=== PATIENT | male | born 1990 | race Caucasian/White ===

== ENCOUNTER 2021-06-07 13:33 | Emergency (ER) | payer MEDICAID ==
[~2021-06-07] VITALS: Ht 172.7 cm; Wt 60.5 kg
[2021-06-07 13:42] VITALS: BP 128/84
[2021-06-07] MEDS ORDERED: METOCLOPRAMIDE 10 MG/2 ML INJ VIAL IVP ONE (14:15)
[2021-06-07] MEDS ORDERED: NACL 0.9% 1,000 ML IV ONE (14:15)
--- NOTE | 2021-06-07 14:25 | NUR ---
Patient ambulated to bed 02 with steady/even gait.
--- NOTE | 2021-06-07 14:30 | NUR ---
Dr. Martinez is evaluating pt at bedside
[2021-06-07] MEDS ORDERED: buprenorphine HCL 2 MG sublingual tab SL ONE ×2 (14:40→15:50)
--- NOTE | 2021-06-07 14:40 | NUR ---
31 Y/O MALE C/O OPIATE WITHDRAWAL X TODAY. PT A&OX4, AMBULATORY REPORTS NAUSEA/VOMITING, [place], ABDOMINAL CRAMPS AND BODY ACHES. PT NORMALLY TAKES 8-10 NORCO PILLS A DAY. LAST PILL XMIDNIGHT LAST NIGHT. DENIES SI/HI BUT STATES THAT HE IS SCARED TO GO HOME AND HAVE THE WITHDRAWALS GET WORSE, STATES HE IS SCARED HE IS GOING TO . PT STATES HEROIN USE DAILY FOR THE PAST YEAR; REPORTS LAST SMOKED HEROIN 12 HRS AGO. PT DENIES CHEST PAIN, ABDOMINAL PAIN, SOB, COUGH, DIZZINESS, FEVER/CHILLS. 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 SKIN PINK WARM/DRY. CAP REFILL IMMEDIATE. NO EDEMA NOTED. BED LOCKED IN LOWEST POSITION, SIDERAILS X 1, CALL LIGHT IN REACH. PMH:DENIES NKDA
[2021-06-07 14:55] LABS: BASOPHILS % (AUTO) 0.3 % (0.0-2.0); EOSINOPHILS % (AUTO) 0.5 % (0.0-4.0); HEMOGLOBIN 14.4 g/dL (12.0-18.0); LYMPHOCYTES # (AUTO) 1.2 K/uL (2.0-11.5); MEAN CORPUSCULAR HEMOGLOBIN 30 pg (27-31); MEAN CORPUSCULAR HGB CONC 34 g/dL (33-37); MEAN CORPUSCULAR VOLUME 87.7 fL (80-94); MONOCYTES # (AUTO) 0.5 K/uL (0.8-1.0); MONOCYTES % (AUTO) 5.6 % (1.7-9.3); NEUTROPHILS # (AUTO) 7.6 K/uL (1.8-7.7); NEUTROPHILS % (AUTO) 80.6 % (42.2-75.2); PLATELET COUNT (AUTO) 254 K/uL (140-450); RED BLOOD CELL COUNT(AUTO) 4.79 MIL/uL (4.20-6.10); RED CELL DISTRIBUTION WIDTH 14.4 % (11.6-13.7); WHITE BLOOD COUNT (AUTO) 9.5 K/uL (4.8-10.8)
[2021-06-07 15:27] LABS: ALBUMIN 4.3 g/dL (3.4-5.0); BILIRUBIN,DIRECT 0.2 mg/dL (0.0-0.3); TOTAL BILIRUBIN 0.9 mg/dL (0.0-1.0)
[2021-06-07 15:32] LABS: ANION GAP 14.2 (8-16); CARBON DIOXIDE 26.4 mmol/L (21-32); CREATININE 0.7 mg/dL (0.6-1.3); POTASSIUM 3.6 mmol/L (3.5-5.1)
--- NOTE | 2021-06-07 15:41 | NUR ---
Pt reports pain remains; states he feels slightly better; requesting meds for body aches at this time. Dr. Martinez made aware.
[2021-06-07] MEDS ORDERED: ONDANSETRON 4 MG/2 ML VIAL IVP ONE (15:50)
--- NOTE | 2021-06-07 17:39 | NUR ---
IV removed, catheter intact and site benign. Applied folded 2x2 gauze and tape to stop bleeding.
[2021-06-07 17:41] VITALS: BP 121/81
--- NOTE | 2021-06-07 17:41 | NUR ---
Patient discharged with v/s stable. Written and verbal after care instructions given and explained. Patient verbalized understanding. Ambulatory with steady gait. All questions addressed prior to discharge. Advised to follow up with PMD.
== END 2021-06-07 17:41 | disposition home or self-care (01) ==
LOC: MED 13:33
DX: F11.23 Opioid dependence with withdrawal (principal)
CPT/HCPCS: 36415; 80048; 80076; 83690; 85025; 93005; 96361; 96374; 96375; 99284; J2405; J2765; J7030

== ENCOUNTER 2022-09-30 00:35 | Emergency (ER) | payer MEDICAID, OTHER ==
[~2022-09-30] VITALS: Ht 177.8 cm; Wt 68.0 kg
[2022-09-30 00:36] VITALS: BP 130/90
--- NOTE | 2022-09-30 00:42 | NUR ---
TO LOBBY FOLLOWING TRIAGE
--- NOTE | 2022-09-30 02:25 | NUR ---
PT TO CHAIR B
[2022-09-30] MEDS ORDERED: NALO4SPR NS (02:38)
[2022-09-30 03:23] VITALS: BP 130/90
--- NOTE | 2022-09-30 03:23 | NUR ---
Seen and evaluated by ERIKA
--- NOTE | 2022-09-30 03:23 | NUR ---
Patient discharged with v/s stable. Written and verbal after care instructions given and explained. New rx narcan. Patient verbalized understanding. Ambulatory with steady gait. All questions addressed prior to discharge. Advised to follow up with PMD.
== END 2022-09-30 03:23 | disposition home or self-care (01) ==
LOC: MED 00:35
DX: T40.601A Poisoning by unspecified narcotics, accidental (unintentional), initial encounter (principal); Z79.899 Other long term (current) drug therapy; Y92.89 Other specified places as the place of occurrence of the external cause
CPT/HCPCS: 99282; 99283